=== PATIENT | female | born 1940 | race Caucasian/White ===

== ENCOUNTER → 2020-08-17 | Outpatient (CLI) | payer OTHER ==
[~2020-08-17] MED LIST: ASA81BEC PO; FOSAMAX 70 MG T70 MG PO; LEVOTHYROXINE112 MC1 PO; LIPITOR10 MG PO; TOPROL XL50 MG PO
== END ==
LOC: LAB
PROVIDERS: ATTEND Student in an Organized Health Care Education/Training Program
DX: Z01.812 Encounter for preprocedural laboratory examination (principal); Z20.822 Contact with and (suspected) exposure to COVID-19

== ENCOUNTER → 2020-08-19 | Outpatient (CLI) | payer OTHER ==
[~2020-08-19] VITALS: Ht 170.2 cm; Wt 71.2 kg
--- NOTE | 2020-08-22 11:11 | P ---
[facility] [address] PROCEDURE REPORT Name: BARB MENDENHALL Room #: REG [facility]#: [id number] Admission: 08/19/20 Attend Phys: Rusty Roth Discharge: Date of : 44 Report #: [id number] THIS REPORT FOR: cc: BENIGNO MCKEON Physician not on staff Rusty Estrella MD ~ DOC #: [id number] cc: Benigno Estrella MD DATE OF SERVICE: 08/19/2020 PROCEDURE PERFORMED: Colonoscopy. HISTORY OF PRESENT ILLNESS: The patient is a 79-year-old female with a history of colon polyps, here for a 5-year followup. She does complain of constipation in general and has been taking stool softeners, which has been helpful. She has difficulty with defecation at times. No family history of colon cancer. DESCRIPTION OF PROCEDURE: The risks and benefits of the procedure were explained to the patient, those risks including but not limited to bleeding, perforation and the risk of sedation. She understood these risks and gave informed consent. Sedation was given using propofol per anesthesia. Next, a digital rectal exam was initially performed, which was normal. Next, using a standard Olympus colonoscope, the scope was placed in the patient's anus and advanced under direct vision into the distal sigmoid colon, at which point, there were multiple diverticula and it is very tortuous, somewhat narrowed. I was unable to pass the scope through this area. Therefore, the scope was then withdrawn and a pediatric Olympus colonoscope was used. I was able to pass through this area with the pediatric scope. The scope was advanced under direct vision to the cecum. The overall prep was excellent. The cecum and ileocecal valve were normal in appearance. The ascending, transverse and descending colon were normal. Multiple diverticula noted in the sigmoid colon, again very tortuous and somewhat narrowed. No evidence of inflammation. The rectal mucosa was normal. On retroflexion, small nonbleeding internal hemorrhoids were noted. The scope was then withdrawn and the procedure terminated. The patient tolerated the procedure well. IMPRESSION: 1. Sigmoid diverticulosis. 2. Internal hemorrhoids. 3. Otherwise, normal colonoscopy. RECOMMENDATIONS: Continue current regimen of stool softeners. We discussed the possibility of a rectocele causing difficulty with her bowel movements. [address] [address] PROCEDURE REPORT Name: MENDENHALLBARB Room #: REG [facility] Price#: [id number] Admission: 08/19/20 Attend Phys: Rusty Roth Discharge: Date of : 44 Report #: [id number] Thank you for allowing me to participate in her care. Rusty Estrlela MD CCM/SAT <ELECTRONICALLY SIGNED> By: Rusty Estrella MD 08/22/20 1111 [id number] Rusty Estrella MD /nt
== END | disposition home or self-care (01) ==
LOC: GI 06:56
PROVIDERS: ATTEND Specialist
DX: K59.00 Constipation, unspecified (principal); K57.30 Diverticulosis of large intestine without perforation or abscess without bleeding; K64.8 Other hemorrhoids; E78.00 Pure hypercholesterolemia, unspecified; Z86.010 Personal history of colon polyps; Z98.890 Other specified postprocedural states; Z79.899 Other long term (current) drug therapy; Z87.442 Personal history of urinary calculi; Z98.41 Cataract extraction status, right eye; Z98.42 Cataract extraction status, left eye; Z79.82 Long term (current) use of aspirin
CPT/HCPCS: 62110; 62900